=== PATIENT | male | born 1985 | race Caucasian/White ===

== ENCOUNTER 2021-04-19 15:49 | Emergency (ER) | payer SELFPAY ==
[2021-04-19] MEDS ORDERED: Ibuprofen 800 MG TAB ONE (17:02)
== END 2021-04-19 17:10 | disposition home or self-care (01) ==
LOC: NAV ERS 15:49
DX: S02.40EA Zygomatic fracture, right side, initial encounter for closed fracture (principal); F41.9 Anxiety disorder, unspecified; F17.210 Nicotine dependence, cigarettes, uncomplicated; Z79.899 Other long term (current) drug therapy; W21.04XA Struck by golf ball, initial encounter; Y93.53 Activity, golf
CPT/HCPCS: 70450; 70486